=== PATIENT | male | born 1960 | race African-American/Black ===

== ENCOUNTER 2018-06-09 11:55 | Emergency (ER) | payer OTHER ==
[2018-06-09 12:00] VITALS: TEMP 98.4; BMI 25.8
[2018-06-09] MEDS ORDERED: MECLIZINE HCL 25 MG TABLET (FP) PO ONE (12:31)
--- NOTE | 2018-06-09 12:39 | PDOC ---
History of Present Illness - General Chief Complaint: Nausea/Vomiting Stated Complaint: NAUSEA/VOMITING Time Seen by Provider: 06/09/18 12:09 - History of Present Illness Initial Comments: 06/09/18 12:38 58 yo M with h/o GERD, and right corneal transplant who p/w dizziness and vomiting. Patient reports waking up this morning in bed, turning his head, and experiencing "spinning sensation" of the room. Symptoms relieved with rest position. Also endorses two episodes of non bilious, non bloody emesis this AM. Normal bowel habits, with daily stools. Recently seen at [facility]D this week 06/06/18 and diagnosed with vertigo. Meclizine 25 mg PO has been sent to pharmacy, but patient has not picked up medication. Patient denies EASON, tinnitus, hearing loss, F/C, CP, SOB, urinary complaints, abdominal pain, diarrhea, constipation, lightheadedness, weakness, sensory changes. PMHx: as noted above Surgcial: Denies ROS: as noted SHx: Denies Etoh, tobacco, IVDA. Allergies: NKDA Past History - Past Medical History Allergies/Adverse Reactions: Allergies Allergy/AdvReac Type Severity Reaction Status Date / Time No Known Allergies Allergy Verified 06/09/18 12:00 Home Medications: Ambulatory Orders Amlodipine Besylate 10 mg PO DAILY 06/09/18 Folic Acid 1 mg PO DAILY 06/09/18 Meclizine HCl 25 mg PO ASDIR 06/09/18 Ondansetron HCl [Zofran] 4 mg PO PRN PRN #14 tablet 06/09/18 Pantoprazole Sodium [Protonix] 40 mg PO DAILY 06/09/18 COPD: No - Suicide/Smoking/Psychosocial Hx Smoking History: Never smoked Information on smoking cessation initiated: No Review of Systems - Review of Systems Comments:: 06/09/18 12:38 GENERAL/CONSTITUTIONAL: No fever or chills. No weakness. HEAD, EYES, EARS, NOSE AND THROAT: No change in vision. No ear pain or discharge. No sore throat. CARDIOVASCULAR: No chest pain or shortness of breath RESPIRATORY: No cough, wheezing, or hemoptysis. GASTROINTESTINAL: + nausea, and vomiting. No diarrhea or constipation. GENITOURINARY: No dysuria, frequency, or change in urination. MUSCULOSKELETAL: No joint or muscle swelling or pain. No neck or back pain. SKIN: No rash NEUROLOGIC: + Vertigo. No headache, vertigo, loss of consciousness, or change in strength/sensation. ENDOCRINE: No increased thirst. No abnormal weight change HEMATOLOGIC/LYMPHATIC: No anemia, easy bleeding, or history of blood clots. ALLERGIC/IMMUNOLOGIC: No hives or skin allergy. *Physical Exam - Vital Signs Last Vital Signs Temp Pulse Resp BP Pulse Ox 98.4 F 64 18 141/93 99 06/09/18 11:57 06/09/18 11:57 06/09/18 11:57 06/09/18 11:57 06/09/18 11:57 - Physical Exam Comments: 06/09/18 12:38 GENERAL: Awake, alert, and fully oriented, in no acute distress HEAD: No signs of trauma, normocephalic, atraumatic EYES: Absent nystagmus. + Right corneal opacification. PERRLA, EOMI, sclera anicteric, conjunctiva clear ENT: Auricles normal inspection, hearing grossly normal, nares patent, oropharynx clear without exudates. Moist mucosa NECK: Normal ROM, supple, no lymphadenopathy, JVD, or masses LUNGS: No distress, speaks full sentences, clear to auscultation bilaterally HEART: Regular rate and rhythm, normal S1 and S2, no murmurs, rubs or gallops, peripheral pulses normal and equal bilaterally. ABDOMEN: Soft, nontender, normoactive bowel sounds. No guarding, no rebound. No masses EXTREMITIES : Normal inspection, Normal range of motion, no edema. No clubbing or cyanosis. NEUROLOGICAL: Cranial nerves II through XII grossly intact. Normal speech, normal PADMINI, and HTS. Absent dysmetria on FTN. No focal sensorimotor deficits. SKIN: Warm, Dry, normal turgor, no rashes or lesions noted ED Treatment Course - LABORATORY CBC & Chemistry Diagram: 06/09/18 12:46 06/09/18 12:46 Medical Decision Making - Medical Decision Making 06/09/18 12:47 58 yo M with h/o GERD, and right corneal transplant who p/w "spinning sensation " and vomiting. VSS, AF. "spinning" reproducible with lateral neck/head movement , but with absent nystagmus. Symptoms not present at rest. Patient with likely peripheral vs. central vertigo. Suspect BPPV vs. less likely Meniere's disease, labrynthiits, AOM. Low suspicion CVA/TIA. Ed Course: CBC,CMP, Trop Meclizine 06/09/18 12:58 EKG: NSR with LVH, nml interval duration and axis. Absent OSMAN, STD, or TWI. 06/09/18 13:38 CBC, CMP: Unremarkable Trop: Neg 06/09/18 13:46 Patient symptoms improved following Meclizine. Zofran sent to pharmacy. Pt.tolerating PO intake. Stable for d/c with return precautions. Advised to f/u with PMD. *DC/Admit/Observation/Transfer Diagnosis at time of Disposition: Vertigo - Discharge Dispostion Condition at time of disposition: Stable Decision to Admit order: No - Prescriptions Prescriptions: Ondansetron HCl [Zofran] 4 mg PO PRN PRN #14 tablet PRN Reason: Nausea - Referrals Referrals: Yesi Huang [Primary Care Provider] - - Patient Instructions Printed Discharge Instructions: DI for Vertigo, DI for Vomiting -- Adult Additional Instructions: Please return to the emergency department with any new or worsening symptoms or concerns. Please follow up with your primary care physician within 72 hours. Please take Meclizine and zofran as prescribed. - Post Discharge Activity - Attestations Physician Attestion: 06/09/18 12:52 I attest to the information provided in this note.
[2018-06-09] MEDS ORDERED: MECLIZINE HCL 25 MG TABLET (FP) ONE (12:41)
[2018-06-09 13:05] LABS: BASO % 0.5 % (0-2.0); EOS % 0.1 % (0-4.5); HEMATOCRIT 36.9 % (35.4-49); HEMOGLOBIN 12.6 GM/dL (11.7-16.9); LYMPH % 16.2 % (8-40); MCH 24.9 pg (25.7-33.7); MCHC 34.2 g/dl (32.0-35.9); MEAN CELL VOLUME 72.8 fl (80-96); MEAN PLT VOLUME 9.1 fl (7.5-11.1); MONO % 4.6 % (3.8-10.2); NEUT % 78.6 % (42.8-82.8); PLATELET COUNT 215 K/MM3 (134-434); RBC 5.07 M/mm3 (4.00-5.60); RDW 20.7 % (11.9-15.9); WHITE BLOOD COUNT 6.9 K/mm3 (4.0-10.0)
[2018-06-09 13:24] LABS: ANION GAP 6 MMOL/L (8-16); BILIRUBIN,TOTAL 1.2 mg/dL (0.2-1.0); BLOOD UREA NITROGEN 16 mg/dL (7-18); CALCIUM 8.5 mg/dL (8.5-10.1); CHLORIDE 105 mmol/L (98-107); CO2 32 mmol/L (21-32); CREATININE 1.1 mg/dL (0.7-1.3); GLUCOSE,RANDOM 99 mg/dL (74-106); POTASSIUM 4.2 mmol/L (3.5-5.1); SGOT/AST 15 U/L (15-37); SGPT/ALT 35 U/L (12-78); SODIUM 143 mmol/L (136-145); TOT PROT 8.4 g/dl (6.4-8.2)
[2018-06-09 13:27] LABS: ALK PHOS 87 U/L (45-117)
[2018-06-09] MEDS ORDERED: ONDANSETRON 4 MG TABLET PO ONE (13:50)
--- NOTE | 2018-06-09 13:50 | PDOC ---
Attending Attestation - Resident Resident Name: Stephen Wu - ED Attending Attestation I have performed the following: I have examined & evaluated the patient, The case was reviewed & discussed with the resident, I agree w/resident's findings & plan, Exceptions are as noted - HPI HPI: 06/09/18 13:44 58-year-old male with past history of right corneal transplant presents with vertigo like symptoms. The patient's been endorsing for approximately 1 week of symptoms with intense dizzy like episodes of nausea when turning head horizontally. Denies chest pain or shortness of breath. Denies lightheadedness. Denies recent illnesses, fevers, chills, cough, vomiting, diarrhea. 3 days ago, the patient had visited the primary care physician and was given a prescription of meclizine for vertigo. However, the patient did not come to [facility] the prescription. She denies tinnitus or hearing loss. Denies recent illnesses. - Physicial Exam PE: 06/09/18 13:46 GENERAL: Awake, alert, and fully oriented, in no acute distress HEAD: No signs of trauma EYES: WAYLON, sclera anicteric, conjunctiva clear ENT: Auricles normal inspection, hearing grossly normal, nares patent, Moist mucosa NECK: Normal ROM, supple LUNGS: Breath sounds equal, clear to auscultation bilaterally. No wheezes, and no crackles HEART: Regular rate and rhythm, normal S1 and S2, no murmurs, rubs or gallops ABDOMEN: Soft, nontender, No guarding, no rebound. No masses EXTREMITIES: Normal range of motion, no edema. No clubbing or cyanosis. No cords, erythema, or tenderness NEUROLOGICAL: Cranial nerves II through XII intact. Normal speech. 5/5 strength upper and lower extremities. Sensation intact throughout. No pronator drift. No dysmetria. Normal rapid alternating exam. Heel to lobo normal. +gabriella august pike maneuver. SKIN: Warm, Dry, normal turgor, no rashes or lesions noted. - Medical Decision Making 06/09/18 13:50 Vital Signs Temp Pulse Resp BP Pulse Ox 98.4 F 64 18 141/93 99 06/09/18 11:57 06/09/18 11:57 06/09/18 11:57 06/09/18 11:57 06/09/18 11:57 58 year old male presents with likely peripheral vertigo. Pt reports feeling better with meclizine. Return precautions given. Labs reassuring. Heart Score/ECG Review #1 ECG reviewed & interpreted by me at: 12:30 06/09/18 13:47 NSR 60, +LVH, no kimber/std, n ormal axis, normal intervals, TWI avL QTC 416 msec
[2018-06-09] MEDS ORDERED: ONDANSETRON *ODT* 4 MG TABLET ONE (13:58)
[2018-06-09 14:05] VITALS: BP 131/88; PULSE 65
--- NOTE | 2018-06-11 13:56 | EKG ---
Test Reason : Blood Pressure : / mmHG Vent. Rate : 060 BPM Atrial Rate : 060 BPM P-R Int : 152 ms QRS Dur : 096 ms QT Int : 416 ms P-R-T Axes : 035 023 081 degrees QTc Int : 416 ms NORMAL SINUS RHYTHM MINIMAL VOLTAGE CRITERIA FOR LVH, MAY BE NORMAL VARIANT NONSPECIFIC T WAVE ABNORMALITY ABNORMAL ECG NO PREVIOUS ECGS AVAILABLE Confirmed by ARLEEN BURNS MD ([id number]) on 06/11/2018 1:56:05 PM Referred By: Confirmed By:ARLEEN BURNS MD
== END 2018-06-09 14:05 | disposition home or self-care (01) ==
LOC: JER 11:55
DX: R42 Dizziness and giddiness (principal); K21.9 Gastro-esophageal reflux disease without esophagitis; Z94.7 Corneal transplant status
CPT/HCPCS: 36415; 80053; 84484; 85025; 93005; 93010; 99282-25

== ENCOUNTER 2022-04-04 04:24 | Day surgery (SDC) | payer OTHER ==
[2022-03-31 13:48] VITALS: BMI 25.8
[2022-04-04] MEDS ORDERED: PROPOFOL 20 ML ONE (11:52)
[2022-04-04] MEDS ORDERED: MIDAZOLAM HCL 2 MG/2 ML SINGLE DOSE VIAL ONE (11:52)
[2022-04-04] MEDS ORDERED: KETOROLAC TROMETHAMINE 30 MG/1 ML VIAL ONE (12:11)
[2022-04-04 13:49] VITALS: BP 162/90; PULSE 50; TEMP 97.9
== END 2022-04-04 13:55 | disposition home or self-care (01) ==
LOC: JASU-SURG 04:24
PROVIDERS: ATTEND Urology
PROC: 0TF3XZZ Fragmentation in Right Kidney Pelvis, External Approach (ICD-10-PCS; principal; 2022-04-04 11:00)
DX: N20.0 Calculus of kidney (principal)